=== PATIENT | female | born 1950 | race Caucasian/White ===

== ENCOUNTER 2017-08-30 16:38 | Inpatient (IN) | payer MEDICARE ==
[~2017-08-30] VITALS: Ht 160 cm; Wt 75.5 kg
[2017-08-30 16:38] VITALS: BP 109/57; PULSE 141; RESP 20; TEMP 100.5; O2SAT 96
[~2017-08-30 16:38] MED LIST: DARV PO; PROM6.257 PO; VENL25TA14 PO; ZITH250T PO; [UNRECOGNIZED DRUG - OTHER] PO
[2017-08-30] MEDS ORDERED: IOHEXOL 350 MG/ML 10 ML VIAL (for RAD DIAG) IVCONTRAST ONE (16:39)
[2017-08-30] MEDS ORDERED: SODIUM CHLOR 0.9% 1000 ML INJ 1,000 ML IV SCH (17:28)
[2017-08-30] MEDS ORDERED: ONDANSETRON HCL 4 MG/2 ML VIAL IVP ONE (17:30)
--- NOTE | 2017-08-30 17:31 | PD ---
HPI Chief Complaint: Fever Time Seen by Provider: 17:20 Travel History International Travel<30 days: No Contact w/Intl Traveler<30days: No Traveled to known affect area: No History of Present Illness HPI 67-year-old female presents for evaluation of fever, weakness, decreased appetite, nausea and vomiting, abdominal pain, cloudy urine. Symptoms started this morning. She believes that she may have a urinary tract infection. She denies any dysuria, diarrhea or constipation. The pain is right-sided periumbilical, mild, aching, worse with palpation. She had a syncopal episode in triage while walking in the bathroom- she reports that she has had nothing to eat today secondary to nausea and vomiting. Denies chest pain, shortness of breath, cough or congestion. PFSH Past Medical History Depression: Yes Kidney Stones: Yes Respiratory: Yes (COPD) Menopausal: Yes : 3 Para: 1 Miscarriage: 2 Past Surgical History Section: Yes (1995) Genitourinary Surgery: Yes (KIDNEY STONE REMOVED 1991) Gynecologic Surgery: Yes (FIBROID TUMOR BENIGN OF UTERUS- 1984) Social History Alcohol Use: Yes (SOCIALLY) Tobacco Use: No Substance Use: No Allergies-Medications (Allergen,Severity, Reaction): Coded Allergies: No Known Allergies (Verified Allergy, Mild, 01/08/08) Reported Meds & Prescriptions Reported Meds & Active Scripts Active Reported Flonase Sensimist (Fluticasone Furoate) 27.5 Mcg/Actuation [place].susp EACH NARE Breo Ellipta Inh (Fluticasone/Vilanterol) 100-25 Mcg/Act Inh 1 Puff INH DAILY Use daily at the same time. Pravastatin 10 Mg Tab 10 Mg PO DAILY Ibuprofen 200 Mg Tab 200 Mg PO Q4H PRN [Drixoral Otc] 1 Tab PO DAILY Review of Systems Except as stated in HPI: all other systems reviewed are Neg Physical Exam Narrative GENERAL: Well-developed well-nourished female in no acute distress SKIN: Warm and dry. HEAD: Atraumatic. Normocephalic. EYES: Pupils equal and round. No scleral icterus. No injection or drainage. ENT: No nasal bleeding or discharge. Mucous membranes pink and moist. NECK: Trachea midline. No JVD. CARDIOVASCULAR: Regular rate and rhythm. No murmur appreciated. RESPIRATORY: No accessory muscle use. Clear to auscultation. Breath sounds equal bilaterally. GASTROINTESTINAL: Abdomen soft, mild right periumbilical tenderness without guarding. No right upper quadrant tenderness. No tenderness to palpation over McBurney's point. No CVA tenderness. MUSCULOSKELETAL: No obvious deformities. No clubbing. No cyanosis. No edema. NEUROLOGICAL: Awake and alert. No obvious cranial nerve deficits. Motor grossly within normal limits. Normal speech. PSYCHIATRIC: Appropriate mood and affect; insight and judgment normal. Data Data Last Documented VS Vital Signs Date Time Temp Pulse Resp B/P (MAP) Pulse Ox O2 Delivery O2 Flow Rate FiO2 08/30/17 19:31 117 97 Nasal Cannula 2.00 08/30/17 19:31 24 89/58 (68) 08/30/17 16:38 100.5 Orders Orders Sepsis Workup Initiated (08/30/17 ) Electrocardiogram (08/30/17 17:02) Complete Blood Count With Diff (08/30/17 17:02) Comprehensive Metabolic Panel (08/30/17 17:02) Lactic Acid Sepsis Protocol (08/30/17 17:02) Urinalysis - C+S If Indicated (08/30/17 17:02) Blood Culture (08/30/17 17:02) Chest, Single Ap (08/30/17 17:02) Sodium Chlor 0.9% 1000 Ml Inj (Ns 1000 M (08/30/17 17:28) Ondansetron Inj (Zofran Inj) (08/30/17 17:30) Sodium Chlor 0.9% 1000 Ml Inj (Ns 1000 M (08/30/17 17:28) Ct Abd/Pel W Iv Contrast(Rout) (08/30/17 17:28) Blood Glucose (08/30/17 17:31) Urine Culture (08/30/17 17:20) Lipase (08/30/17 17:20) Ceftriaxone Inj (Rocephin Inj) (08/30/17 18:30) Potassium Chloride (Kcl) (08/30/17 18:30) Iohexol 350 Inj (Omnipaque 350 Inj) (08/30/17 16:39) Ketorolac Inj (Toradol Inj) (08/30/17 19:15) Admit Order (Ed Use Only) (08/30/17 19:57) Admit To Inpatient (08/30/17 ) Vital Signs (Adult) Q4H (08/30/17 19:56) Activity Oob With Assistance (08/30/17 19:56) Content Engineer / Telemetry .CONTINUOUS (08/30/17 19:56) Intake + Output RONAL.QSHIFT (08/30/17 19:56) Sodium Chloride 0.9% Flush (Ns Flush) (08/30/17 20:00) Sodium Chloride 0.9% Flush (Ns Flush) (08/30/17 21:00) Basic Metabolic Panel (Bmp) (08/31/17 06:00) Complete Blood Count With Diff (08/31/17 06:00) Naloxone Inj (Narcan Inj) (08/30/17 20:00) Inpatient Certification (08/30/17 ) Labs Laboratory Tests Test 08/30/17 17:20 08/30/17 19:55 White Blood Count 11.2 TH/MM3 Red Blood Count 4.61 MIL/MM3 Hemoglobin 13.1 GM/DL Hematocrit 38.3 % Mean Corpuscular Volume 83.1 FL Mean Corpuscular Hemoglobin 28.5 PG Mean Corpuscular Hemoglobin Concent 34.3 % Red Cell Distribution Width 14.1 % Platelet Count 322 TH/MM3 Mean Platelet Volume 7.4 FL Neutrophils (%) (Auto) 96.4 % Lymphocytes (%) (Auto) 2.6 % Monocytes (%) (Auto) 0.9 % Eosinophils (%) (Auto) 0.1 % Basophils (%) (Auto) 0.0 % Neutrophils # (Auto) 10.8 TH/MM3 Lymphocytes # (Auto) 0.3 TH/MM3 Monocytes # (Auto) 0.1 TH/MM3 Eosinophils # (Auto) 0.0 TH/MM3 Basophils # (Auto) 0.0 TH/MM3 CBC Comment DIFF FINAL Differential Comment Urine Color YELLOW Urine Turbidity HAZY Urine pH 6.0 Urine Specific [place] 1.022 Urine Protein 30 mg/dL Urine Glucose (UA) NEG mg/dL Urine Ketones NEG mg/dL Urine Occult Blood MOD Urine Nitrite NEG Urine Bilirubin NEG Urine Urobilinogen LESS THAN 2.0 MG/DL Urine Leukocyte Esterase LARGE Urine RBC 92 /hpf Urine WBC /hpf Urine Squamous Epithelial Cells 3 /hpf Urine Transitional Epithelial Cells 2 /hpf Urine Amorphous Sediment RARE Urine Bacteria RARE /hpf Urine Mucus MANY /lpf Microscopic Urinalysis Comment CATH-CULTURE IND Blood Urea Nitrogen 18 MG/DL Creatinine 1.00 MG/DL Random Glucose 121 MG/DL Total Protein 7.5 GM/DL Albumin 3.3 GM/DL Calcium Level 9.0 MG/DL Alkaline Phosphatase 139 U/L Aspartate Amino Transf (AST/SGOT) 21 U/L Alanine Aminotransferase (ALT/SGPT) 23 U/L Total Bilirubin 0.4 MG/DL Sodium Level 138 MEQ/L Potassium Level 3.0 MEQ/L Chloride Level 108 MEQ/L Carbon Dioxide Level 18.5 MEQ/L Anion Gap 12 MEQ/L Estimat Glomerular Filtration Rate 56 ML/MIN Lactic Acid Level 4.0 mmol/L 1.9 mmol/L Lipase 137 U/L [facility] Medical Decision Making Medical Screen Exam Complete: Yes Emergency Medical Condition: Yes Medical Record Reviewed: Yes Interpretation(s) CONCLUSION: 1. Patient's symptoms appear to be due to a series of 3 stones are in the right UPJ/proximal ureter ranging in size from 3-5 mm. Resulting right-sided hydronephrosis and perinephric stranding. 2. Nonobstructing 2-3 mm stone in the lower pole collecting system of the left kidney. 3. Cholelithiasis. 4. 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 Differential Diagnosis Colitis, appendicitis, cholecystitis, pyelonephritis, dehydration, electrolyte abnormality, sepsis Narrative Course The patient was placed on ECG monitoring pulse oximetry. Twelve-lead EKG will be obtained. Plan is for lab work, CT abdomen and pelvis. She will be given IV fluids, Zofran. Laboratory imaging studies have been reviewed. The patient has 3 stones in the right UPJ/proximal ureter ranging in size from 3-5 mm with resulting right- sided hydronephrosis. Her WBC count is slightly elevated at 11.2, lactic acid is 4, potassium is 3. The patient was given Toradol, Rocephin. At this point in time the plan is to admit the patient. Diagnosis Primary Impression: Severe sepsis Additional Impressions: Pyelonephritis Ureteral calculi Hydronephrosis Admitting Information Admitting Physician Requests: Admit Edgar Blake Aug 30, 2017 17:31
[2017-08-30] MEDS: SODIUM CHLOR 0.9% 1000 ML INJ 1,000 ML IV SCH ×3 (17:47→21:38)
[2017-08-30] MEDS ORDERED: FLUT1INH INH (17:50)
[2017-08-30] MEDS ORDERED: IBUP200T47 PO (17:50)
[2017-08-30] MEDS ORDERED: PRAV10TA PO (17:50)
[2017-08-30 17:56] LABS: AUTOMATED NEUTROPHIL # 10.8 TH/MM3 (1.8-7.7); EOSINOPHIL % 0.1 % (0.0-4.0); HEMATOCRIT 38.3 % (35.0-46.0); HEMO FLAGS DIFF FINAL; LYMPH % 2.6 % (9.0-44.0); LYMPHOCYTE # 0.3 TH/MM3 (1.0-4.8); MEAN CELL VOLUME 83.1 FL (80.0-100.0); MEAN CORPUSCULAR HEMOGLOBIN 28.5 PG (27.0-34.0); MEAN CORPUSCULAR HGB CONC 34.3 % (32.0-36.0); MONO % 0.9 % (0.0-8.0); NEUT % 96.4 % (16.0-70.0); PLATELET COUNT 322 TH/MM3 (150-450); RED BLOOD COUNT 4.61 MIL/MM3 (4.00-5.30); RED CELL DISTRIBUTION WIDTH 14.1 % (11.6-17.2); WHITE BLOOD COUNT 11.2 TH/MM3 (4.0-11.0)
[2017-08-30 18:02] LABS: BACTERIA, URINE RARE /hpf; BLOOD, URINE MOD (NEG); GLUCOSE,URINE NEG (NEG); KETONE, URINE NEG (NEG); MUCUS URINE MANY /lpf (OCC); NITRITE,URINE NEG (NEG); SQUAMOUS EPITHELIAL CELL URINE 3 /hpf (0-5); TRANSITIONAL EPI CELLS, URINE 2 /hpf; URINE COLOR YELLOW (YELLW/STRAW)
[2017-08-30 18:07] LABS: COMMENT (UR) CATH-CULTURE IND; CULTURE IF INDICATED CATH CULTURE IND
--- NOTE | 2017-08-30 18:19 | RADRPT ---
EXAM DATE/TIME: 08/30/2017 18:02 [facility] COMPARISON: No previous studies available for comparison. INDICATIONS : Fever. MEDICAL HISTORY : None. SURGICAL HISTORY : None. ENCOUNTER: Initial ACUITY: 1 day PAIN SCORE: 0/10 LOCATION: chest FINDINGS: A single view of the chest demonstrates the lungs to be symmetrically aerated without evidence of mas s, infiltrate or effusion. The cardiomediastinal contours are unremarkable. Osseous structures are intact. CONCLUSION: No acute cardiopulmonary process Nicola Gomes MD on August 30, 2017 at 18:17 Board Certified Radiologist. This report was verified electronically.
[2017-08-30 18:22] LABS: ALT (GPT) 23 U/L (10-53); ANION GAP 12 MEQ/L (5-15); AST (GOT) 21 U/L (15-37); BICARBONATE 18.5 MEQ/L (21.0-32.0); BLOOD UREA NITROGEN 18 MG/DL (7-18); CHLORIDE 108 MEQ/L (98-107); GLOMERULAR FILTRATION RATE 56 ML/MIN (>89); SODIUM (NA) 138 MEQ/L (136-145)
[2017-08-30 18:25] LABS: ALKALINE PHOSPHATASE 139 U/L (45-117); TOTAL BILIRUBIN ADULT 0.4 MG/DL (0.2-1.0)
[2017-08-30] MEDS ORDERED: POTASSIUM CHLORIDE 20 MEQ CONTROLLED RELEASE TAB PO ONE (18:30)
[2017-08-30] MEDS ORDERED: cefTRIAXone INJ 1,000 MG in SODIUM CHLORIDE 0.9% INJ 100 ML IV ONE (18:30)
[2017-08-30] MEDS ORDERED: KETOROLAC TROMETHAMINE 30 MG/ML (IVP) VIAL IV PUSH ONE (19:15)
[2017-08-30 19:31] VITALS: BP 89/58; PULSE 117; RESP 24; O2SAT 97
--- NOTE | 2017-08-30 19:32 | RADRPT ---
EXAM DATE/TIME: 08/30/2017 18:55 [facility] COMPARISON: No previous studies available for comparison. INDICATIONS : Fever,nausea ,right flank pain IV CONTRAST: 86 cc Omnipaque 350 (iohexol) IV ORAL CONTRAST: No oral contrast ingested. RADIATION DOSE: 11.21 CTDIvol (mGy) MEDICAL HISTORY : Chronic obstructive pulmonary disease. Renal calculi. Fibroid SURGICAL HISTORY : section. ENCOUNTER: Initial ACUITY: 1 day PAIN SCALE: 2/10 LOCATION: Right Abdomen TECHNIQUE: Volumetric scanning of the abdomen and pelvis was performed. Using automated exposure control and ad justment of the mA and/or kV according to patient size, radiation dose was kept as low as reasonably achievable to obtain optimal diagnostic quality images. DICOM format image data is available electro nically for review and comparison. FINDINGS: LOWER LUNGS: The visualized lower lungs are clear. LIVER: Homogeneous density without lesion. There is no dilation of the biliary tree. Multiple calcified gal lstones in the gallbladder lumen SPLEEN: Normal size without lesion. PANCREAS: Within normal limits. KIDNEYS: Right-sided hydronephrosis with perinephric stranding into a series of 3 stones the UVJ. These range in size from 3-5 mm. Nonobstructing 2-3 mm stone in the lower pole collecting system of the left kidn ey. ADRENAL GLANDS: Within normal limits. VASCULAR: There is no aortic aneurysm. BOWEL/MESENTERY: The stomach, small bowel, and colon demonstrate no acute abnormality. There is no free intraperitone al air or fluid. Diverticular disease of the sigmoid colon without diverticulitis ABDOMINAL WALL: Within normal limits. RETROPERITONEUM: There is no lymphadenopathy. BLADDER: No wall thickening or mass. REPRODUCTIVE: Within normal limits. INGUINAL: There is no lymphadenopathy or hernia. MUSCULOSKELETAL: Within normal limits for patient age. CONCLUSION: 1. Patient's symptoms appear to be due to a series of 3 stones are in the right UPJ/proximal ureter r anging in size from 3-5 mm. Resulting right-sided hydronephrosis and perinephric stranding. 2. Nonobstructing 2-3 mm stone in the lower pole collecting system of the left kidney. 3. Cholelithiasis. 4. 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 Nicola Gomes MD on August 30, 2017 at 19:25 Board Certified Radiologist. This report was verified electronically.
[2017-08-30 19:37] LABS: LACTIC ACID GHOST NOT REPORTABLE
[2017-08-30] MEDS ORDERED: NALOXONE HCL 0.4 MG/ML AMP IV PUSH PRN (20:00)
[2017-08-30] MEDS ORDERED: SODIUM CHLORIDE 0.9% FLUSH 10 ML FLUSH IV FLUSH PRN (20:00)
[2017-08-30] MEDS ORDERED: MORPHINE SULFATE 2 MG/ML INJ IV PUSH PRN (20:00)
[2017-08-30 20:42] VITALS: BP 92/60; PULSE 127; O2SAT 97
--- NOTE | 2017-08-30 22:38 | HHI.HP ---
HPI Service [facility] Primary Care Physician Jay Hogue M.D. Admission Diagnosis severe sepsis, pyelonephritis, ureteral stones Diagnoses: (1) Severe sepsis (2) Pyelonephritis (3) Hydronephrosis (4) Ureteral calculi Chief Complaint: Back pain, cloudy urine, fever, nausea and vomiting Travel History International Travel<30 Days: No Contact w/Intl Traveler <30 Da: No Traveled to Known Affected Are: No History of Present Illness Written by Jannet Day, acting as scribe for Dr. Starks on 08/30/17 at 22:38. Patient reports fever 103.3, cloudy urine, back pain, nausea and vomiting, and chills. Symptoms severe with onset 08/30 in the morning. Denies dysuria. The patient was concerned she might have a UTI and presented to the hospital. She is also complaining of a mild headache. She was not on antibiotics recently Urologist is Dr. Eason Over the past two weeks prior to this morning: denies any nausea, vomiting, diarrhea, chest pain, dizziness, shortness of breath, syncope, cough, black stools or red stools. Review of Systems Except as stated in HPI: all other systems reviewed are Neg Past Family Social History Past Medical History Nephrolithiasis Reports white coat syndrome COPD - not on home oxygen Denies anemia, CAD, CHF, atrial fibrillation, liver problems, kidney problems, DVT, CVA, seizures, thyroid problems, or cancers . Past Surgical History Lithotripsy Uterine myomectomy (fibroid tumor removal) . Reported Medications Reported Meds & Active Scripts Active Reported Flonase Sensimist (Fluticasone Furoate) 27.5 Mcg/Actuation [place].susp EACH NARE Breo Ellipta Inh (Fluticasone/Vilanterol) 100-25 Mcg/Act Inh 1 Puff INH DAILY Use daily at the same time. Pravastatin 10 Mg Tab 10 Mg PO DAILY Ibuprofen 200 Mg Tab 200 Mg PO Q4H PRN [Drixoral Otc] 1 Tab PO DAILY . Allergies: Coded Allergies: No Known Allergies (Verified Allergy, Mild, 01/08/08) Active Ordered Medications . Current Medications Sodium Chloride 1,000 ml @ 1,000 mls/hr Q1H IV Last administered on 17:46; Start 08/30/17 at 17:28; Stop 08/30/17 at 18:27; Status DC Ondansetron HCl (Zofran Inj) 4 mg ONCE ONCE IVP Last administered on 17:47; Start 08/30/17 at 17:30; Stop 08/30/17 at 17:31; Status DC Sodium Chloride 1,000 ml @ 1,000 mls/hr Q1H IV Last administered on 20:20; Start 08/30/17 at 17:28; Stop 08/30/17 at 18:27; Status DC Ceftriaxone Sodium 1000 mg/ Sodium Chloride 100 ml @ 200 mls/hr ONCE ONCE IV Last administered on 08/30/17 19:09; Start 08/30/17 at 18:30; Stop 08/30/17 at 18:59; Status DC Potassium Chloride (KCl) 40 meq ONCE ONCE PO Last administered on 08/30/17 19:10; Start 08/30/17 at 18:30; Stop 08/30/17 at 18:31; Status DC Iohexol (Omnipaque 350 Inj) 86 ml STK-MED ONCE IVCONTRAST Last administered on 08/30/17 16:39; Start 08/30/17 at 16:39; Stop 08/30/17 at 19:08; Status DC Ketorolac Tromethamine (Toradol Inj) 30 mg ONCE ONCE IV PUSH Last administered on 08/30/17 20:20; Start 08/30/17 at 19:15; Stop 08/30/17 at 19 :16; Status DC Sodium Chloride (NS Flush) 2 ml UNSCH PRN IV FLUSH FLUSH AFTER USING IV ACCESS ; Start 08/30/17 at 20:00 Sodium Chloride (NS Flush) 2 ml BID IV FLUSH ; Start 08/30/17 at 21:00 Naloxone HCl (Narcan Inj) 0.4 mg UNSCH PRN IV PUSH SEE LABEL COMMENTS; Start 08/30/17 at 20:00 Sodium Chloride 1,000 ml @ 125 mls/hr Q8H IV Last administered on 11/29/17at 21:38; Start 08/30/17 at 21:00 Ceftriaxone Sodium 1000 mg/ Sodium Chloride 100 ml @ 200 mls/hr Q12H IV ; Start 08/31/17 at 08:00 Morphine Sulfate (Morphine Inj) 2 mg Q3H PRN IV PUSH pain >5; Start 08/30/17 at 20:00 Family History Mother with CAD s/p CABG x 4 Diabetes Mellitus throughout family . Social History Tobacco: never smoked, exposed to second hand smoke by ex 's family x > 20 years Alcohol: rare social use Lives with her son. She drives. Physical Exam Vital Signs Vital Signs Date Time Temp Pulse Resp B/P (MAP) Pulse Ox O2 Delivery O2 Flow Rate FiO2 08/30/17 21:37 08/30/17 20:42 127 92/60 (71) 97 Nasal Cannula 2.00 08/30/17 19:31 117 97 Nasal Cannula 2.00 08/30/17 19:31 117 24 89/58 (68) 97 Nasal Cannula 2.00 08/30/17 17:28 15 98 Room Air 08/30/17 16:38 100.5 141 20 109/57 (74) 96 Room Air Physical Exam GENERAL: This is a pleasant female patient, in no apparent distress. SKIN: No rashes. Cool and dry. HEAD: Atraumatic. Normocephalic. EYES: No scleral icterus. No injection or drainage. ENT: Nose without bleeding, purulent drainage. NECK: Trachea midline. No JVD. CARDIOVASCULAR: Regular rate and rhythm without murmurs, gallops, or rubs. RESPIRATORY: Clear to auscultation. Breath sounds equal bilaterally. No wheezes , rales, or rhonchi. GASTROINTESTINAL: Abdomen soft, non-tender, nondistended. No guarding. MUSCULOSKELETAL: Extremities without clubbing, cyanosis, or edema. No calf tenderness. NEUROLOGICAL: Awake and alert. Motor and sensory grossly within normal limits. Normal speech. . Laboratory Laboratory Tests Test 08/30/17 17:20 08/30/17 19:55 White Blood Count 11.2 Red Blood Count 4.61 Hemoglobin 13.1 Hematocrit 38.3 Mean Corpuscular Volume 83.1 Mean Corpuscular Hemoglobin 28.5 Mean Corpuscular Hemoglobin Concent 34.3 Red Cell Distribution Width 14.1 Platelet Count 322 Mean Platelet Volume 7.4 Neutrophils (%) (Auto) 96.4 Lymphocytes (%) (Auto) 2.6 Monocytes (%) (Auto) 0.9 Eosinophils (%) (Auto) 0.1 Basophils (%) (Auto) 0.0 Neutrophils # (Auto) 10.8 Lymphocytes # (Auto) 0.3 Monocytes # (Auto) 0.1 Eosinophils # (Auto) 0.0 Basophils # (Auto) 0.0 CBC Comment DIFF FINAL Differential Comment Urine Color YELLOW Urine Turbidity HAZY Urine pH 6.0 Urine Specific [place] 1.022 Urine Protein 30 Urine Glucose (UA) NEG Urine Ketones NEG Urine Occult Blood MOD Urine Nitrite NEG Urine Bilirubin NEG Urine Urobilinogen LESS THAN 2.0 Urine Leukocyte Esterase LARGE Urine RBC 92 Urine WBC Urine Squamous Epithelial Cells 3 Urine Transitional Epithelial Cells 2 Urine Amorphous Sediment RARE Urine Bacteria RARE Urine Mucus MANY Microscopic Urinalysis Comment CATH-CULTURE IND Blood Urea Nitrogen 18 Creatinine 1.00 Random Glucose 121 Total Protein 7.5 Albumin 3.3 Calcium Level 9.0 Alkaline Phosphatase 139 Aspartate Amino Transf (AST/SGOT) 21 Alanine Aminotransferase (ALT/SGPT) 23 Total Bilirubin 0.4 Sodium Level 138 Potassium Level 3.0 Chloride Level 108 Carbon Dioxide Level 18.5 Anion Gap 12 Estimat Glomerular Filtration Rate 56 Lactic Acid Level 4.0 1.9 Lipase 137 Date/Time Source Procedure Growth Status 08/30/17 17:20 Blood Peripheral Aerobic Blood Culture Pending Received 08/30/17 17:20 Blood Peripheral Anaerobic Blood Culture Pending Received 08/30/17 17:20 Urine Catheterized Urine Urine Culture Pending Received Result Diagram: 08/30/17 1720 08/30/17 1720 Imaging Last Impressions Abdomen/Pelvis CT 08/30/17 1728 Signed Impressions: Service Date/Time: Wednesday, August 30, 2017 18:55 - CONCLUSION: 1. Patient's symptoms appear to be due to a series of 3 stones are in the right UPJ/proximal ureter ranging in size from 3-5 mm. Resulting right-sided hydronephrosis and perinephric stranding. 2. Nonobstructing 2-3 mm stone in the lower pole collecting system of the left kidney. 3. Cholelithiasis. 4. 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 Nicola Gomes MD Chest X-Ray 08/30/17 1702 Signed Impressions: Service Date/Time: Wednesday, August 30, 2017 18:02 - CONCLUSION: No acute cardiopulmonary process Nicola Gomes MD . Caprini VTE Risk Assessment Caprini VTE Risk Assessment: Mod/High Risk (score >= 2) Caprini Risk Assessment Model Point Value = 1 Point Value = 2 Point Value = 3 Point Value = 5 Age 41-60 Minor surgery BMI > 25 kg/m2 Swollen legs Varicose veins or History of unexplained or recurrent spontaneous Oral contraceptives or hormone replacement Sepsis (< 1 month) Serious lung disease, including pneumonia (< 1 month) Abnormal pulmonary function Acute myocardial infarction Congestive heart failure (< 1 month) History of inflammatory bowel disease Medical patient at bed rest Age 61-74 Arthroscopic surgery Major open surgery (> 45 min) Laparoscopic surgery (> 45 min) Malignancy Confined to bed (> 72 hours) Immobilizing plaster cast Central venous access Age >= 75 History of VTE Family history of VTE Factor V Leiden Prothrombin [id number] Lupus anticoagulant Anticardiolipin antibodies Elevated serum homocysteine Heparin-induced thrombocytopenia Other congenital or acquired thrombophilia Stroke (< 1 month) Elective arthroplasty Hip, pelvis, or leg fracture Acute spinal cord injury (< 1 month) Prophylaxis Regimen Total Risk Factor Score Risk Level Prophylaxis Regimen 0-1 Low Early ambulation 2 Moderate Order ONE of the following: *Sequential Compression Device (SCD) *Heparin 5000 units SQ BID 3-4 Higher Order ONE of the following medications: *Heparin 5000 units SQ TID *Enoxaparin/Lovenox 40 mg SQ daily (WT < 150 kg, CrCl > 30 mL/min) *Enoxaparin/Lovenox 30 mg SQ daily (WT < 150 kg, CrCl > 10-29 mL/min) *Enoxaparin/Lovenox 30 mg SQ BID (WT < 150 kg, CrCl > 30 mL/min) AND/OR *Sequential Compression Device (SCD) 5 or more Highest Order ONE of the following medications: *Heparin 5000 units SQ TID (Preferred with Epidurals) *Enoxaparin/Lovenox 40 mg SQ daily (WT < 150 kg, CrCl > 30 mL/min) *Enoxaparin/Lovenox 30 mg SQ daily (WT < 150 kg, CrCl > 10-29 mL/min) *Enoxaparin/Lovenox 30 mg SQ BID (WT < 150 kg, CrCl > 30 mL/min) AND *Sequential Compression Device (SCD) Assessment and Plan Problem List: (1) Severe sepsis ICD Code: A41.9 - Sepsis, unspecified organism; R65.20 - Severe sepsis without septic shock Status: Acute (2) Pyelonephritis ICD Code: N12 - Tubulo-interstitial nephritis, not specified as acute or chronic; R65.20 - Severe sepsis without septic shock Status: Acute (3) Hydronephrosis ICD Code: N13.30 - Unspecified hydronephrosis Status: Acute (4) Ureteral calculi ICD Code: N20.1 - Calculus of ureter; R65.20 - Severe sepsis without septic shock Status: Acute (5) COPD (chronic obstructive pulmonary disease) ICD Code: J44.9 - Chronic obstructive pulmonary disease, unspecified Status: Chronic Assessment and Plan 67 y/o female with a history of nephrolithiasis and COPD who presented to ED for evaluation of back pain, fever, chills, cloudy urine, nausea, and vomiting. Severe sepsis Right ureteral kidney stone with hydronephrosis Pyelonephritis - WBC 11.2 with left shift, tachycardia, fever 100.5 on admission, and UA c/w UTI - Lactic Acid 4.0 on admission and 1.9 on repeat - Ceftriaxone 1 gram IV q12h - NS at 125 cc/hr - Morphine 2 mg IV q3h PRN pain > 5 - urology consulted - assistance is appreciated - NPO after midnight with p.o. meds - verbally ordered. COPD - chest xray demonstrates no acute cardiopulmonary process - continue home medication - Breo Ellipta - verbally ordered - supplemental oxygen to maintain oxygen saturation > 92% - verbally ordered Patient requesting home medication Flonase for allergic rhinitis and Tylenol for mild CORDOBA - verbally ordered. DVT prophylaxis - SCDs/TEDs - verbally ordered This note was transcribed by kandy [Jannet Day]. I, Dr. Yasmeen Starks personally performed the history, physical exam, and medical decision making; and confirmed the accuracy of the information in the transcribed note. Authenticated by Dr. Yasmeen Starks on 08/30/17 at 22:38. Discussed Condition With ER physician, patient, and RN Physician Certification 2 Midnight Certification Type: Admission for Inpatient Services Order for Inpatient Services The services are ordered in accordance with Medicare regulations or non- Medicare payer requirements, as applicable. In the case of services not specified as inpatient-only, they are appropriately provided as inpatient services in accordance with the 2-midnight benchmark. Estimated LOS (days): 3 days is the estimated time the patient will need to remain in the hospital, assuming treatment plan goals are met and no additional complications. Post-Hospital Plan: Home Jannet Day Aug 30, 2017 22:38 Yasmeen Starks MD Aug 31, 2017 03:03
[2017-08-30] MEDS: SODIUM CHLORIDE 0.9% FLUSH 10 ML FLUSH IV FLUSH SCH (22:43)
[2017-08-30] MEDS ORDERED: FLUT9.9S EACH NARE (22:51)
[2017-08-30 23:02] VITALS: BP 87/54; PULSE 123; RESP 20; TEMP 100; O2SAT 98
[2017-08-30] MEDS ORDERED: ACETAMINOPHEN 325 MG TAB PO ONE (23:45)
[2017-08-31] VITALS (8 sets, daily range): BP systolic 78–105; BP diastolic 47–67; PULSE 81–111; RESP 17–22; TEMP 96.6–100; O2SAT 93–99
[2017-08-31] MEDS ORDERED: HYDROCORTISONE SOD SUCCINATE 100 MG VIAL IV PUSH ONE (03:15)
[2017-08-31] MEDS ORDERED: SODIUM CHLOR 0.9% 1000 ML INJ 1,000 ML IV ONE ×2 (03:15→05:00)
--- NOTE | 2017-08-31 06:17 | RADRPT ---
EXAM DATE/TIME: 08/31/2017 05:54 [facility] COMPARISON: CHEST SINGLE AP, August 30, 2017, 18:02. INDICATIONS : Shortness of breath. MEDICAL HISTORY : None. SURGICAL HISTORY : None. ENCOUNTER: Subsequent ACUITY: 1 day PAIN SCORE: 0/10 LOCATION: Bilateral chest FINDINGS: A single view of the chest demonstrates the lungs to be symmetrically aerated without evidence of mas s, infiltrate or effusion. The cardiomediastinal contours are unremarkable. Osseous structures are intact. CONCLUSION: No acute disease. Negrito Bush MD on August 31, 2017 at 6:16 Board Certified Radiologist. This report was verified electronically.
[2017-08-31 07:05] LABS: AUTOMATED NEUTROPHIL # 22.6 TH/MM3 (1.8-7.7); BASOPHIL % 0.1 % (0.0-2.0); HEMATOCRIT 32.6 % (35.0-46.0); LYMPH % 1.5 % (9.0-44.0); LYMPHOCYTE # 0.4 TH/MM3 (1.0-4.8); MEAN CELL VOLUME 84.4 FL (80.0-100.0); MEAN CORPUSCULAR HEMOGLOBIN 28.6 PG (27.0-34.0); MEAN CORPUSCULAR HGB CONC 33.9 % (32.0-36.0); MONO % 3.4 % (0.0-8.0); PLATELET COUNT 262 TH/MM3 (150-450); RED BLOOD COUNT 3.87 MIL/MM3 (4.00-5.30); RED CELL DISTRIBUTION WIDTH 14.4 % (11.6-17.2); WHITE BLOOD COUNT 23.8 TH/MM3 (4.0-11.0)
[2017-08-31] MEDS: HYDROCORTISONE SOD SUCCINATE 100 MG VIAL IV PUSH SCH ×4 (07:07→23:39)
[2017-08-31 07:36] LABS: BICARBONATE 16.8 MEQ/L (21.0-32.0); POTASSIUM 3.8 MEQ/L (3.5-5.1)
[2017-08-31 07:40] LABS: HEMO FLAGS AUTO DIFF
[2017-08-31] MEDS: SODIUM CHLOR 0.9% 1000 ML INJ 1,000 ML IV SCH ×2 (07:41→17:26)
[2017-08-31] MEDS: FLUTICASONE 100 MCG/VILANTEROL 25 MCG INHALER INH SCH (08:48)
[2017-08-31] MEDS: cefTRIAXone INJ 1,000 MG in SODIUM CHLORIDE 0.9% INJ 100 ML IV SCH ×2 (08:48→20:50)
[2017-08-31] MEDS: FLUTICASONE PROPIONATE 50 MCG/ACT 16 GM NASAL SPRAY NASAL SCH ×2 (08:49→23:38)
[2017-08-31] MEDS: SODIUM CHLORIDE 0.9% FLUSH 10 ML FLUSH IV FLUSH SCH ×2 (08:49→20:41)
[2017-08-31] MEDS ORDERED: PRAVASTATIN SOD 10 MG TAB PO SCH (09:00)
[2017-08-31] MEDS: PIPERACIL-TAZO 4.5 GM PREMIX 100 ML IV SCH ×3 (12:13→23:39)
--- NOTE | 2017-08-31 12:22 | PD.CONS ---
[facility] Service Urology Consult Requested By Reason for Consult Septic patient with obstructing right ureteral calculi Primary Care Physician Jay Hogue M.D. Diagnosis: (1) Severe sepsis ICD Code: A41.9 - Sepsis, unspecified organism; R65.20 - Severe sepsis without septic shock (2) Pyelonephritis ICD Code: N12 - Tubulo-interstitial nephritis, not specified as acute or chronic; R65.20 - Severe sepsis without septic shock (3) Hydronephrosis ICD Code: N13.30 - Unspecified hydronephrosis (4) Ureteral calculi ICD Code: N20.1 - Calculus of ureter; R65.20 - Severe sepsis without septic shock (5) COPD (chronic obstructive pulmonary disease) ICD Code: J44.9 - Chronic obstructive pulmonary disease, unspecified History of Present Illness 67-year-old female with history nephrolithiasis who presented to the emergency room with complaints of right flank pain, cloudy urine, nausea, vomiting, chills and fever of greater than 103F. Preliminary evaluation included a CT scan that demonstrated right hydronephrosis secondary to 3 obstructing right proximal ureteral stones measuring up to 5 mm in size. Patient also was noted to have a 2-3 mm left lower pole nonobstructing renal calculus. Patient was prescribed analgesic medication, started on antibiotic therapy and a urology consult placed for further management. At the time of consultation, the patient reports that her symptoms began acutely and prior to this she was doing well. Dr. Estevez is this patient's established urologist. Review of Systems Constitutional: COMPLAINS OF: Fever, Chills Cardiovascular: DENIES: Chest pain Gastrointestinal: COMPLAINS OF: Abdominal pain Genitourinary: DENIES: Hematuria, Dysuria Musculoskeletal: COMPLAINS OF: Back pain (right flank) Except as stated in HPI: all other systems reviewed are Neg Past Family Social History Past Medical History Nephrolithiasis COPD Past Surgical History Lithotripsy section Surgical removal of uterine fibroid tumor Reported Medications Refer to EMR Allergies: Coded Allergies: No Known Allergies (Verified Allergy, Mild, 01/08/08) Active Ordered Medications Refer to EMR Family History Coronary artery disease Diabetes mellitus Social History Denies tobacco use Occasional alcohol use Physical Exam Vital Signs Date Time Temp Pulse Resp B/P (MAP) Pulse Ox O2 Delivery O2 Flow Rate FiO2 08/31/17 08:00 98.2 93 19 88/52 (64) 95 98/54 (69) 08/31/17 06:45 94 89/59 (69) Manual Cuff/Auscultation 08/31/17 04:45 98.4 78/52 (61) Automatic Cuff 08/31/17 00:00 100.0 111 20 79/47 (58) 93 08/30/17 23:02 100.0 123 20 87/54 (65) 98 08/30/17 21:37 08/30/17 20:42 127 92/60 (71) 97 Nasal Cannula 2.00 08/30/17 19:31 117 97 Nasal Cannula 2.00 08/30/17 19:31 117 24 89/58 (68) 97 Nasal Cannula 2.00 08/30/17 17:28 15 98 Room Air 08/30/17 16:38 100.5 141 20 109/57 (74) 96 Room Air Physical Exam GENERAL: This is a well-nourished, well-developed patient, in no apparent distress. SKIN: No rashes, ecchymoses or lesions. Cool and dry. HEAD: Atraumatic. Normocephalic. No temporal or scalp tenderness. EYES: Pupils equal round and reactive. Extraocular motions intact. No scleral icterus. No injection or drainage. ENT: Nose without bleeding, purulent drainage or septal hematoma. Throat without erythema, tonsillar hypertrophy or exudate. Uvula midline. Airway patent. NECK: Trachea midline. No JVD or lymphadenopathy. Supple, nontender, no meningeal signs. GASTROINTESTINAL: Abdomen soft, non-tender, nondistended. No hepato-splenomegaly , or palpable masses. No guarding. GENITOURINARY: No CVA tenderness MUSCULOSKELETAL: Extremities without clubbing, cyanosis, or edema. No joint tenderness, effusion, or edema noted. No calf tenderness. Negative Homans sign bilaterally. NEUROLOGICAL: Awake and alert. Cranial nerves II through XII intact. Motor and sensory grossly within normal limits. Five out of 5 muscle strength in all muscle groups. Normal speech. Lab results reviewed: Yes Laboratory Tests Test 08/30/17 17:20 08/30/17 19:55 08/31/17 05:20 White Blood Count 11.2 23.8 Red Blood Count 4.61 3.87 Hemoglobin 13.1 11.1 Hematocrit 38.3 32.6 Mean Corpuscular Volume 83.1 84.4 Mean Corpuscular Hemoglobin 28.5 28.6 Mean Corpuscular Hemoglobin Concent 34.3 33.9 Red Cell Distribution Width 14.1 14.4 Platelet Count 322 262 Mean Platelet Volume 7.4 7.9 Neutrophils (%) (Auto) 96.4 95.0 Lymphocytes (%) (Auto) 2.6 1.5 Monocytes (%) (Auto) 0.9 3.4 Eosinophils (%) (Auto) 0.1 0.0 Basophils (%) (Auto) 0.0 0.1 Neutrophils # (Auto) 10.8 22.6 Lymphocytes # (Auto) 0.3 0.4 Monocytes # (Auto) 0.1 0.8 Eosinophils # (Auto) 0.0 0.0 Basophils # (Auto) 0.0 0.0 CBC Comment DIFF FINAL AUTO DIFF Differential Comment Urine Color YELLOW Urine Turbidity HAZY Urine pH 6.0 Urine Specific [place] 1.022 Urine Protein 30 Urine Glucose (UA) NEG Urine Ketones NEG Urine Occult Blood MOD Urine Nitrite NEG Urine Bilirubin NEG Urine Urobilinogen LESS THAN 2.0 Urine Leukocyte Esterase LARGE Urine RBC 92 Urine WBC Urine Squamous Epithelial Cells 3 Urine Transitional Epithelial Cells 2 Urine Amorphous Sediment RARE Urine Bacteria RARE Urine Mucus MANY Microscopic Urinalysis Comment CATH-CULTURE IND Blood Urea Nitrogen 18 19 Creatinine 1.00 0.95 Random Glucose 121 100 Total Protein 7.5 Albumin 3.3 Calcium Level 9.0 7.8 Alkaline Phosphatase 139 Aspartate Amino Transf (AST/SGOT) 21 Alanine Aminotransferase (ALT/SGPT) 23 Total Bilirubin 0.4 Sodium Level 138 143 Potassium Level 3.0 3.8 Chloride Level 108 113 Carbon Dioxide Level 18.5 16.8 Anion Gap 12 13 Estimat Glomerular Filtration Rate 56 59 Lactic Acid Level 4.0 1.9 Lipase 137 Date/Time Source Procedure Growth Status 08/30/17 17:20 Blood Peripheral Aerobic Blood Culture - Preliminary Enterobacter Species Resulted 08/30/17 17:20 Anaerobic Blood Culture - Preliminary Gram Negative Toni Resulted 08/30/17 17:20 Urine Catheterized Urine Urine Culture Pending Received Result Diagram: 08/31/1751908/31/17519 Personally reviewed images: Yes Imaging Last Impressions Chest X-Ray 08/31/17 0000 Signed Impressions: Service Date/Time: August 05:54 - CONCLUSION: No acute disease. Negrito Bush MD Abdomen/Pelvis CT 08/30/17 1728 Signed Impressions: Service Date/Time: Wednesday, August 30, 2017 18:55 - CONCLUSION: 1. Patient's symptoms appear to be due to a series of 3 stones are in the right UPJ/proximal ureter ranging in size from 3-5 mm. Resulting right-sided hydronephrosis and perinephric stranding. 2. Nonobstructing 2-3 mm stone in the lower pole collecting system of the left kidney. 3. Cholelithiasis. 4. 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 Nicola Gomes MD Assessment and Plan Assessment and Plan Urologic impression: Sepsis related to obstructing right proximal ureteral calculi Plan: #1 keep patient nothing by mouth #2 patient scheduled for cystoscopy, right retrograde pyelogram and right ureteral stent placement for later this afternoon #3 patient will eventually require outpatient shockwave lithotripsy Tone Braga MD Aug 31, 2017 12:22
--- NOTE | 2017-08-31 14:49 | HHI.PR ---
Subjective Remarks Fever And tachycardia have improved. Sepsis criteria and no longer present when seen today. Pending cystoscopy with stent placement is planned for this afternoon. Objective Vital Signs Date Time Temp Pulse Resp B/P (MAP) Pulse Ox O2 Delivery O2 Flow Rate FiO2 08/31/17 12:00 96.6 81 17 104/67 (79) 99 08/31/17 08:00 98.2 93 19 88/52 (64) 95 98/54 (69) 08/31/17 06:45 94 89/59 (69) Manual Cuff/Auscultation 08/31/17 04:45 98.4 78/52 (61) Automatic Cuff 08/31/17 00:00 100.0 111 20 79/47 (58) 93 08/30/17 23:02 100.0 123 20 87/54 (65) 98 08/30/17 21:37 08/30/17 20:42 127 92/60 (71) 97 Nasal Cannula 2.00 08/30/17 19:31 117 97 Nasal Cannula 2.00 08/30/17 19:31 117 24 89/58 (68) 97 Nasal Cannula 2.00 08/30/17 17:28 15 98 Room Air 08/30/17 16:38 100.5 141 20 109/57 (74) 96 Room Air I/O 08/30/17 08/30/17 08/30/17 08/31/17 08/31/17 08/31/17 06:59 14:59 22:59 06:59 14:59 22:59 Intake Total 2100 ml 2000 ml 1000 ml Output Total 550 ml Balance 2100 ml 1450 ml 1000 ml Intake IV Total 2100 ml 2000 ml 1000 ml Output Urine Total 550 ml # Voids 2 Result Diagram: 08/31/1751908/31/17519 Other Results GENERAL: NAD, A&Ox3 HEAD: Normocephalic. NECK: Supple, trachea midline. No lymphadenopathy. EYES: No scleral icterus. No injection or drainage. CARDIOVASCULAR: Regular rate and rhythm without murmurs, gallops, or rubs. RESPIRATORY: Breath sounds equal bilaterally. No accessory muscle use. GASTROINTESTINAL: Abdomen soft, non-tender, nondistended. MUSCULOSKELETAL: No cyanosis, or edema. SKIN: Warm and dry. NEURO: No focal neurological deficitis. A/P Problem List: (1) COPD (chronic obstructive pulmonary disease) ICD Code: J44.9 - Chronic obstructive pulmonary disease, unspecified Status: Chronic (2) Severe sepsis ICD Code: A41.9 - Sepsis, unspecified organism; R65.20 - Severe sepsis without septic shock Status: Acute (3) Ureteral calculi ICD Code: N20.1 - Calculus of ureter; R65.20 - Severe sepsis without septic shock Status: Acute (4) Pyelonephritis ICD Code: N12 - Tubulo-interstitial nephritis, not specified as acute or chronic; R65.20 - Severe sepsis without septic shock Status: Acute (5) Hydronephrosis ICD Code: N13.30 - Unspecified hydronephrosis Status: Acute Assessment and Plan Assessment and plan 67-year-old female admitted secondary to acute pyelonephritis with ureterolithiasis Severe sepsis Right ureterolithiasis with hydronephrosis Pyelonephritis Continue pain treatments as needed Continue Rocephin Urology following Stent placement planned Outpatient lithotripsy planned COPD Allergic Rhinitis Continue Breo Continued Ellepta Continue oxygen as needed No acute exacerbation when seen Continue Flonase DVT prophylaxis SCDs Thomas Hurtado MD Aug 31, 2017 14:49
--- NOTE | 2017-08-31 16:26 | EKG ---
Date Performed: 08/30/2017 Time Performed: 17:34:06 PTAGE: 67 years EKG: SINUS TACHYCARDIA When compared to previous tracing, heart rate has increased. ABNORMAL RHY THM ECG PREVIOUS TRACING : 08/05/1997 04.19 DOCTOR: Quan Young Interpretating Date/Time 08/31/2017 16:25:31
[2017-08-31] MEDS: ACETAMINOPHEN 325 MG TAB PO PRN (21:36)
[2017-08-31] MEDS: RESP: ALBUTEROL 2.5 MG/IPRATROPIUM 0.5 MG NEB (PRN) NEB (22:35)
[2017-09-01] VITALS (8 sets, daily range): BP systolic 85–109; BP diastolic 50–68; PULSE 68–94; RESP 18–22; TEMP 96.9–97.8; O2SAT 93–98
[2017-09-01] MEDS: SODIUM CHLOR 0.9% 1000 ML INJ 1,000 ML IV SCH ×4 (05:00→17:35)
[2017-09-01 05:37] LABS: AUTOMATED NEUTROPHIL # 20.2 TH/MM3 (1.8-7.7); BASOPHIL % 0.1 % (0.0-2.0); HEMATOCRIT 29.5 % (35.0-46.0); HEMO FLAGS DIFF FINAL; LYMPH % 3.2 % (9.0-44.0); LYMPHOCYTE # 0.7 TH/MM3 (1.0-4.8); MEAN CELL VOLUME 83.1 FL (80.0-100.0); MEAN CORPUSCULAR HEMOGLOBIN 27.7 PG (27.0-34.0); MEAN CORPUSCULAR HGB CONC 33.4 % (32.0-36.0); MONO % 3.4 % (0.0-8.0); NEUT % 93.3 % (16.0-70.0); PLATELET COUNT 222 TH/MM3 (150-450); RED BLOOD COUNT 3.56 MIL/MM3 (4.00-5.30); RED CELL DISTRIBUTION WIDTH 14.7 % (11.6-17.2); WHITE BLOOD COUNT 21.7 TH/MM3 (4.0-11.0)
[2017-09-01 06:00] LABS: BICARBONATE 21.3 MEQ/L (21.0-32.0); CALCIUM-PROTEIN CORRECTED 8.1 MG/DL (8.5-10.1); POTASSIUM 3.3 MEQ/L (3.5-5.1); TOTAL BILIRUBIN ADULT 0.2 MG/DL (0.2-1.0)
[2017-09-01] MEDS: PIPERACIL-TAZO 4.5 GM PREMIX 100 ML IV SCH (06:23)
[2017-09-01] MEDS: HYDROCORTISONE SOD SUCCINATE 100 MG VIAL IV PUSH SCH ×3 (06:24→17:32)
[2017-09-01] MEDS: cefTRIAXone INJ 1,000 MG in SODIUM CHLORIDE 0.9% INJ 100 ML IV SCH (08:08)
[2017-09-01] MEDS: FLUTICASONE 100 MCG/VILANTEROL 25 MCG INHALER INH SCH (08:09)
[2017-09-01] MEDS ORDERED: POTASSIUM CHLORIDE 20 MEQ PWD PACKET PO ONE (08:15)
[2017-09-01] MEDS: SODIUM CHLORIDE 0.9% FLUSH 10 ML FLUSH IV FLUSH SCH ×2 (08:23→20:15)
[2017-09-01] MEDS: FLUTICASONE PROPIONATE 50 MCG/ACT 16 GM NASAL SPRAY NASAL SCH ×2 (08:24→21:59)
[2017-09-01] MEDS ORDERED: POTASSIUM CHLOR 20 MEQ PREMIX 100 ML IV ONE (08:45)
[2017-09-01] MEDS ORDERED: POTASSIUM CHLORIDE 20 MEQ CONTROLLED RELEASE TAB PO ONE (08:45)
--- NOTE | 2017-09-01 09:59 | PD.OP ---
Operative Report Date of Surgery: Sep 01, 2017 Preoperative Diagnosis: (1) Ureteral calculus, right Postoperative Diagnosis: (1) Ureteral calculus, right Procedure: Cystoscopy, right retrograde pyelogram and right ureteral stent placement Surgeon: Tone Braga Superintendent Quarry(s): None Operation and Findings: Indication for procedure: The case of a pleasant 67-year-old female with 3 obstructing right proximal ureteral calculi who presents now for cystoscopy, right retrograde pyelogram and right ureteral stent placement. Operative procedure in detail: Patient was brought to the operating suite and placed supine on the cystoscopy table. She was then placed general anesthesia. She was then repositioned in the dorsolithotomy position and prepped and draped in normal sterile fashion. After the appropriate timeout was undertaken high proceeded with cystoscopic evaluation utilizing the rigid cystoscope with the 20 Chinese sheath and 30 lens. Both right and left ureteral orifices were in correct anatomic position, it was clear reflux of urine noted on the left and there was no reflux of urine noted on the right. I then proceeded with passing a sensor 0.035 wire partially up the right ureter and subsequently passed a 6 Chinese open-ended ureteral catheter over this wire. The wire was withdrawn and a right retrograde pyelogram study was performed which demonstrated the obstructing right proximal ureteral calculi as evident on the prior CT scan. I was then able to fully advance the wire beyond the stones and into the right renal pelvis. The open-ended catheter was exchanged for a [place] 6 Chinese 24 cm stent which was placed on the both cystoscopic and fluoroscopic guidance without difficulty. Once the stent was in proper position , the trailing string was removed. There was some bloody urine output coming from the stent after it was placed and a decision was made to place a Harding catheter. A 16 Chinese 10 cc Harding catheter was placed and connected to gravity drainage. The patient tolerated the procedures without complications and was transferred to the PACU in satisfactory condition. Tone Braga MD Sep 01, 2017 09:59
[2017-09-01] MEDS ORDERED: PNEUMOCOCCAL POLYVALENT INJ 25 MCG/0.5 ML SYR IM ONE (10:00)
[2017-09-01] MEDS ORDERED: DO NOT ADM ANY ANTICOAGULANT DRUGS PRN (10:05)
--- NOTE | 2017-09-01 11:39 | HHI.PR ---
Subjective Remarks Signs of infection improving. Bacteremia is present on blood cultures. Final culture results are needed prior to discharge. Objective Vital Signs Date Time Temp Pulse Resp B/P (MAP) Pulse Ox O2 Delivery O2 Flow Rate FiO2 09/01/17 10:35 95 09/01/17 10:30 97.7 74 15 119/70 (86) 98 Nasal Cannula 2 09/01/17 10:15 77 19 118/64 (82) 98 Nasal Cannula 2 09/01/17 10:03 98.4 87 16 116/65 (82) 94 Nasal Cannula 2 Manual Cuff/Auscultation 09/01/17 04:00 97.6 84 22 87/50 (62) 98 09/01/17 00:00 97.4 94 22 85/54 (64) 97 08/31/17 20:57 98 Nasal Cannula 2.00 08/31/17 20:00 97.1 91 22 96/52 (67) 96 08/31/17 16:00 97.9 83 18 105/61 (76) 97 08/31/17 12:00 96.6 81 17 104/67 (79) 99 I/O 08/31/17 08/31/17 08/31/17 09/01/17 09/01/17 09/01/17 07:00 15:00 23:00 07:00 15:00 23:00 Intake Total 2000 ml 1200 ml 1200 ml 1000 ml 600 ml Output Total 550 ml 750 ml 775 ml 175 ml Balance 1450 ml 1200 ml 450 ml 225 ml 425 ml Intake Oral 0 ml 0 ml IV Total 2000 ml 1200 ml 1200 ml 1000 ml 100 ml Other 500 ml Output Urine Total 550 ml 750 ml 775 ml 175 ml # Voids 2 2 # Bowel Movements 0 0 Result Diagram: 09/01/17 0503 09/01/17 0503 Objective Remarks GENERAL: NAD, A&Ox3 HEAD: Normocephalic. NECK: Supple, trachea midline. No lymphadenopathy. EYES: No scleral icterus. No injection or drainage. CARDIOVASCULAR: Regular rate and rhythm without murmurs, gallops, or rubs. RESPIRATORY: Breath sounds equal bilaterally. No accessory muscle use. GASTROINTESTINAL: Abdomen soft, non-tender, nondistended. MUSCULOSKELETAL: No cyanosis, or edema. SKIN: Warm and dry. NEURO: No focal neurological deficitis. A/P Problem List: (1) COPD (chronic obstructive pulmonary disease) ICD Code: J44.9 - Chronic obstructive pulmonary disease, unspecified Status: Chronic (2) Severe sepsis ICD Code: A41.9 - Sepsis, unspecified organism; R65.20 - Severe sepsis without septic shock Status: Acute (3) Ureteral calculi ICD Code: N20.1 - Calculus of ureter; R65.20 - Severe sepsis without septic shock Status: Acute (4) Pyelonephritis ICD Code: N12 - Tubulo-interstitial nephritis, not specified as acute or chronic; R65.20 - Severe sepsis without septic shock Status: Acute (5) Hydronephrosis ICD Code: N13.30 - Unspecified hydronephrosis Status: Acute Assessment and Plan Assessment and plan 67-year-old female admitted secondary to acute pyelonephritis with ureterolithiasis. Bacteremia present on cultures. Final results pending. Infectious disease consulted. Continue to monitor CBC. Severe sepsis Right ureterolithiasis with hydronephrosis Pyelonephritis Continue pain treatments as needed Continue Rocephin Urology following Stent placement planned Outpatient lithotripsy planned COPD Allergic Rhinitis Continue Breo Continued Ellepta Continue oxygen as needed No acute exacerbation when seen Continue Flonase DVT prophylaxis SCDs Thomas Hurtado MD Sep 01, 2017 11:39
[2017-09-01] MEDS ORDERED: DEXAMETHASONE SOD PHOS 4 MG/ML VIAL IV ONE (12:00)
[2017-09-01] MEDS ORDERED: ONDANSETRON HCL 4 MG/2 ML VIAL IV PUSH ONE (12:00)
[2017-09-01] MEDS ORDERED: LIDOCAINE HCL 1% PF 5 ML SYRINGE OTHER ONE (12:00)
[2017-09-01] MEDS ORDERED: MIDAZOLAM HCL 2 MG/2 ML VIAL IV ONE (12:00)
[2017-09-01] MEDS ORDERED: PHENYLEPH/NS 1000 MCG/10 ML SYR IV ONE (12:00)
[2017-09-01] MEDS ORDERED: PROPOFOL 200 MG/20 ML AMP IV ONE (12:00)
--- NOTE | 2017-09-01 13:52 | PD.ID.CON ---
History of Present Illness Service ID Consult Requested By Reason for Consult Evaluation and Mment of Gram negative bacteremia, Sepsis. Primary Care Physician Jay Hogue M.D. Diagnoses: History of Present Illness is a 67 y/o CF with PMHx of nephrolithiasis who presented to the emergency room with complaints of right flank pain, cloudy urine, nausea, vomiting, chills and fever of greater than 103F. Preliminary evaluation included a CT scan that demonstrated right hydronephrosis secondary to 3 obstructing right proximal ureteral stones measuring up to 5 mm in size. Patient also was noted to have a 2-3 mm left lower pole nonobstructing renal calculus. Patient was prescribed analgesic medication, started on antibiotic therapy and a urology consult placed for further management. At the time of consultation, the patient reports that her symptoms began acutely and prior to this she was doing well. Dr. Estevez is this patient's established urologist. Patient reports h/o COPD but denies active smoking but has significant passive smoking. ID consulted for evaluation and Mment of Sepsis, Gram negative bacteremia, Enterobacter cloacae UTI. Review of Systems Constitutional: COMPLAINS OF: Fever, DENIES: Diaphoretic episodes, Fatigue, Weight gain, Weight loss, Chills, Dizziness, Change in appetite, Night Sweats Endocrine: DENIES: Abnorml menstrual pattern, Heat/cold intolerance, Polydipsia , Polyuria, Polyphagia Eyes: DENIES: Blurred vision, Diplopia, Eye inflammation, Eye pain, Vision loss , Photosensitivity, Double Vision Ears, nose, mouth, throat: DENIES: Tinnitus, Hearing loss, Vertigo, Nasal discharge, Oral lesions, Throat pain, Hoarseness, Ear Pain, Running Nose, Epistaxis, Sinus Pain, Toothache, Odynophagia Respiratory: DENIES: Apneas, Cough, Snoring, Wheezing, Hemoptysis, Sputum production, Shortness of breath Cardiovascular: DENIES: Chest pain, Palpitations, Syncope, Dyspnea on Exertion , PND, Lower Extremity Edema, Orthopnea, Claudication Gastrointestinal: COMPLAINS OF: Abdominal pain, DENIES: Black stools, Bloody stools, Constipation, Diarrhea, Nausea, Vomiting, Difficulty Swallowing, Anorexia Genitourinary: DENIES: Abnormal vaginal bleeding, Dysmenorrhea, Dyspareunia, Sexual dysfunction, Urinary frequency, Urinary incontinence, Urgency, Hematuria , Dysuria, Nocturia, Vaginal discharge Musculoskeletal: DENIES: Joint pain, Muscle aches, Stiffness, Joint Swelling, Back pain, Neck pain Integumentary: DENIES: Abnormal pigmentation, Pruritus, Rash, Nail changes, Breast masses, Breast skin changes, Nipple discharge Hematologic/lymphatic: DENIES: Bruising, Lymphadenopathy Immunologic/allergic: DENIES: Eczema, Urticaria Neurologic: DENIES: Abnormal gait, Headache, Localized weakness, Paresthesias, Seizures, Speech Problems, Tremor, Poor Balance Psychiatric: DENIES: Anxiety, Confusion, Mood changes, Depression, Hallucinations, Agitation, Suicidal Ideation, Homicidal Ideation, Delusions Except as stated in HPI: all other systems reviewed are Neg Past Family Social History Allergies: Coded Allergies: No Known Allergies (Verified Allergy, Mild, 01/08/08) Past Medical History Nephrolithiasis COPD Past Surgical History Lithotripsy section Surgical removal of uterine fibroid tumor Reported Medications Reported Meds & Active Scripts Active Reported Flonase Sensimist (Fluticasone Furoate) 27.5 Mcg/Actuation [place]ley.susp EACH NARE Breo Ellipta Inh (Fluticasone/Vilanterol) 100-25 Mcg/Act Inh 1 Puff INH DAILY Use daily at the same time. Pravastatin 10 Mg Tab 10 Mg PO DAILY Ibuprofen 200 Mg Tab 200 Mg PO Q4H PRN [Drixoral Otc] 1 Tab PO DAILY Active Ordered Medications Current Medications Medications (Trade) Dose Ordered Sig/Stephon Route Start Time Stop Time Status Last Admin (NS Flush) 2 ml UNSCH PRN IV FLUSH 08/30/17 20:00 (NS Flush) 2 ml BID IV FLUSH 08/30/17 21:00 (Narcan Inj) 0.4 mg UNSCH PRN IV PUSH 08/30/17 20:00 Sodium Chloride 1,000 ml @ 125 mls/hr Q8H IV 08/30/17 21:00 09/01/17 17:35 (Morphine Inj) 2 mg Q3H PRN IV PUSH 08/30/17 20:00 (Flonase Logan Spr) 1 spray BID NASAL 08/30/17 23:45 (Breo Ellipta 100-25 Inh) 1 puff DAILY INH 08/31/17 09:00 09/01/17 08:09 (SoluCORTEF INJ) 100 mg Q6HR IV PUSH 08/31/17 06:00 09/01/17 17:32 (Pravachol) 10 mg HS PO 09/01/17 21:00 09/01/17 20:15 (Duoneb Neb) 1 ampule Q4HR NEB PRN NEB 08/31/17 21:30 08/31/17 22:35 (Tylenol) 650 mg Q4H PRN PO 08/31/17 21:30 09/01/17 20:15 Miscellaneous Information ALL NURSING DEPARTME... UNSCH PRN .XX 09/01/17 10:05 09/02/17 10:04 Ceftriaxone Sodium 2000 mg/ Sodium Chloride 100 ml @ 200 mls/hr Q24H IV 09/02/17 20:00 Family History Coronary artery disease Diabetes mellitus Social History Denies tobacco use Occasional alcohol use Physical Exam Vital Signs Vital Signs Date Time Temp Pulse Resp B/P (MAP) Pulse Ox O2 Delivery O2 Flow Rate FiO2 09/01/17 12:00 96.9 70 18 109/68 (82) 96 09/01/17 10:35 95 09/01/17 10:30 97.7 74 15 119/70 (86) 98 Nasal Cannula 2 09/01/17 10:15 77 19 118/64 (82) 98 Nasal Cannula 2 09/01/17 10:03 98.4 87 16 116/65 (82) 94 Nasal Cannula 2 Manual Cuff/Auscultation 09/01/17 08:00 97.4 68 20 94/51 (65) 97 09/01/17 04:00 97.6 84 22 87/50 (62) 98 09/01/17 00:00 97.4 94 22 85/54 (64) 97 08/31/17 20:57 98 Nasal Cannula 2.00 08/31/17 20:00 97.1 91 22 96/52 (67) 96 08/31/17 16:00 97.9 83 18 105/61 (76) 97 Physical Exam GENERAL: Obese, well-developed patient, in no apparent distress. SKIN: No rashes, ecchymoses or lesions. Cool and dry. HEAD: Atraumatic. Normocephalic. No temporal or scalp tenderness. EYES: Pupils equal round and reactive. Extraocular motions intact. No scleral icterus. No injection or drainage. ENT: Nose without bleeding, purulent drainage or septal hematoma. Throat without erythema, tonsillar hypertrophy or exudate. Uvula midline. Airway patent. NECK: Trachea midline. Supple, nontender, no meningeal signs. CARDIOVASCULAR: Regular rate and rhythm without murmurs, gallops, or rubs. RESPIRATORY: Clear to auscultation. Breath sounds equal bilaterally. GASTROINTESTINAL: Abdomen soft, non-tender, nondistended. MUSCULOSKELETAL: Extremities without clubbing, cyanosis, or edema. No joint tenderness, effusion, or edema noted. No calf tenderness. Negative Homans sign bilaterally. NEUROLOGICAL: Awake and alert. Non focal exam. Psych cooperative IV line sites with no e.o infection. Laboratory Laboratory Tests Test 09/01/17 05:03 White Blood Count 21.7 Red Blood Count 3.56 Hemoglobin 9.9 Hematocrit 29.5 Mean Corpuscular Volume 83.1 Mean Corpuscular Hemoglobin 27.7 Mean Corpuscular Hemoglobin Concent 33.4 Red Cell Distribution Width 14.7 Platelet Count 222 Mean Platelet Volume 7.6 Neutrophils (%) (Auto) 93.3 Lymphocytes (%) (Auto) 3.2 Monocytes (%) (Auto) 3.4 Eosinophils (%) (Auto) 0.0 Basophils (%) (Auto) 0.1 Neutrophils # (Auto) 20.2 Lymphocytes # (Auto) 0.7 Monocytes # (Auto) 0.7 Eosinophils # (Auto) 0.0 Basophils # (Auto) 0.0 CBC Comment DIFF FINAL Differential Comment Blood Urea Nitrogen 21 Creatinine 0.65 Random Glucose 123 Total Protein 5.8 Albumin 2.2 Calcium Level 7.4 Alkaline Phosphatase 72 Aspartate Amino Transf (AST/SGOT) 30 Alanine Aminotransferase (ALT/SGPT) 17 Total Bilirubin 0.2 Sodium Level 147 Potassium Level 3.3 Chloride Level 117 Carbon Dioxide Level 21.3 Anion Gap 9 Estimat Glomerular Filtration Rate 91 Protein Corrected Calcium 8.1 Date/Time Source Procedure Growth Status 08/30/17 17:20 Blood Peripheral Aerobic Blood Culture - Preliminary Enterobacter Species Resulted 08/30/17 17:20 Anaerobic Blood Culture - Preliminary Gram Negative Toni Resulted 08/30/17 17:20 Urine Catheterized Urine Urine Culture - Final Enterobacter Cloacae Complete Result Diagram: 09/01/17 0503 09/01/17 0503 Imaging Last Impressions Chest X-Ray 08/31/17 0000 Signed Impressions: Service Date/Time: August 05:54 - CONCLUSION: No acute disease. Negrito Bush MD Abdomen/Pelvis CT 08/30/17 1728 Signed Impressions: Service Date/Time: Wednesday, August 30, 2017 18:55 - CONCLUSION: 1. Patient's symptoms appear to be due to a series of 3 stones are in the right UPJ/proximal ureter ranging in size from 3-5 mm. Resulting right-sided hydronephrosis and perinephric stranding. 2. Nonobstructing 2-3 mm stone in the lower pole collecting system of the left kidney. 3. Cholelithiasis. 4. 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 Nicola Gomes MD Assessment and Plan Assessment and Plan Sepsis present on admission Gram negative bacteremia (E.cloacae) E.Cloacae Pyelonephritis COPD exacerbation Leucocytosis: sepsis, steroids, post op Recs DC Zosyn IV Ceftriaxone 2gm IV q24hr dose changed. Repeat blood cultures x 2 Follow cultures. Follow clinically. I will see patient next on Monday if any change in clinical condition or positive blood cultures please call . Eunice Head MD Sep 01, 2017 13:52
--- NOTE | 2017-09-01 17:43 | ECHRPT ---
Indication: shortness of breath CONCLUSIONS Normal left ventricular size. Wall thickness is normal. The left ventricular systolic function is low normal with an estimated ejection fraction in the rang e of 50- 55%. Mild thickening of the mitral valve leaflets. Moderate mitral valve regurgitation. Aortic valve sclerosis is present. Mild aortic valve regurgitation. Mild thickening of the aortic valve leaflets. There is trace tricuspid valve regurgitation. BP: 79 / 47 HR: 111 Rhythm: Technical Quality:Good FINDINGS LEFT VENTRICLE Normal left ventricular size. Wall thickness is normal. The left ventricular systolic function is low normal with an estimated ejection fraction in the rang e of 50- 55%. RIGHT VENTRICLE Normal right ventricular size and systolic function. LEFT ATRIUM The left atrial size is normal. RIGHT ATRIUM The right atrial size is normal. ATRIAL SEPTUM Normal atrial septal thickness without atrial level shunting by limited color doppler interrogation. AORTA The aortic root and proximal ascending aorta are normal in size on limited imaging. MITRAL VALVE Mild thickening of the mitral valve leaflets. Moderate mitral valve regurgitation. AORTIC VALVE Aortic valve sclerosis is present. Mild aortic valve regurgitation. Mild thickening of the aortic valve leaflets. TRICUSPID VALVE There is trace tricuspid valve regurgitation. PULMONARY VALVE The pulmonary valve is not well visualized. VESSELS The inferior vena cava is normal in size. PERICARDIUM No pericardial effusion. Carlo Desai MD (Electronically Signed) Final Date:01 September 2017 17:42
[2017-09-01] MEDS: PRAVASTATIN SOD 10 MG TAB PO SCH (20:15)
[2017-09-01] MEDS: ACETAMINOPHEN 325 MG TAB PO PRN (20:15)
[2017-09-01] MEDS: RESP: ALBUTEROL 2.5 MG/IPRATROPIUM 0.5 MG NEB (PRN) NEB (21:59)
[2017-09-02] VITALS (8 sets, daily range): BP systolic 109–123; BP diastolic 62–72; PULSE 85–109; RESP 16–24; TEMP 96.4–98.3; O2SAT 92–96
[2017-09-02] MEDS: SODIUM CHLOR 0.9% 1000 ML INJ 1,000 ML IV SCH ×2 (01:11→09:45)
[2017-09-02] MEDS: HYDROCORTISONE SOD SUCCINATE 100 MG VIAL IV PUSH SCH ×3 (01:11→11:54)
[2017-09-02] MEDS: ACETAMINOPHEN 325 MG TAB PO PRN ×2 (01:49→06:49)
[2017-09-02 06:54] LABS: BASOPHIL % 0.1 % (0.0-2.0); HEMATOCRIT 31.8 % (35.0-46.0); HEMO FLAGS DIFF FINAL; LYMPH % 3.1 % (9.0-44.0); LYMPHOCYTE # 0.7 TH/MM3 (1.0-4.8); MEAN CELL VOLUME 83.7 FL (80.0-100.0); MEAN CORPUSCULAR HEMOGLOBIN 27.3 PG (27.0-34.0); MEAN CORPUSCULAR HGB CONC 32.6 % (32.0-36.0); MONO % 3.1 % (0.0-8.0); NEUT % 93.7 % (16.0-70.0); PLATELET COUNT 248 TH/MM3 (150-450); RED CELL DISTRIBUTION WIDTH 15.2 % (11.6-17.2); WHITE BLOOD COUNT 22.4 TH/MM3 (4.0-11.0)
[2017-09-02 07:11] LABS: ANION GAP 9 MEQ/L (5-15); AST (GOT) 22 U/L (15-37); BICARBONATE 21.5 MEQ/L (21.0-32.0); BLOOD UREA NITROGEN 17 MG/DL (7-18); CHLORIDE 118 MEQ/L (98-107); GLOMERULAR FILTRATION RATE 91 ML/MIN (>89); POTASSIUM 3.5 MEQ/L (3.5-5.1); SODIUM (NA) 148 MEQ/L (136-145)
[2017-09-02 07:14] LABS: ALKALINE PHOSPHATASE 89 U/L (45-117); ALT (GPT) 23 U/L (10-53); TOTAL BILIRUBIN ADULT 0.1 MG/DL (0.2-1.0)
[2017-09-02] MEDS: SODIUM CHLORIDE 0.9% FLUSH 10 ML FLUSH IV FLUSH SCH ×2 (09:00→21:33)
[2017-09-02] MEDS: FLUTICASONE PROPIONATE 50 MCG/ACT 16 GM NASAL SPRAY NASAL SCH ×2 (09:00→21:00)
[2017-09-02] MEDS: FLUTICASONE 100 MCG/VILANTEROL 25 MCG INHALER INH SCH ×2 (09:11→21:32)
[2017-09-02] MEDS: RESP: ALBUTEROL 2.5 MG/IPRATROPIUM 0.5 MG NEB (PRN) NEB (11:45)
[2017-09-02] MEDS ORDERED: methylPREDNISolone SOD SUCC 40 MG/1 ML VIAL IV PUSH ONE (13:30)
[2017-09-02] MEDS ORDERED: FUROSEMIDE 20 MG/2 ML VIAL IV PUSH ONE (13:30)
--- NOTE | 2017-09-02 13:36 | HHI.PR ---
Subjective Remarks Enterobacter present on blood cultures and urine culture. Repeat blood culture is negative at 24 hours. Patient has problem with hypoxia today. Etiology may be COPD related versus new onset pneumonia versus pulmonary edema. Objective Vital Signs Date Time Temp Pulse Resp B/P (MAP) Pulse Ox O2 Delivery O2 Flow Rate FiO2 09/02/17 12:00 97.5 85 16 123/69 (87) 94 09/02/17 11:47 95 Nasal Cannula 1.00 09/02/17 08:00 97.7 89 16 113/63 (80) 93 09/02/17 07:49 18 09/02/17 04:00 98.3 88 22 109/62 (78) 95 09/02/17 00:00 97.7 87 24 120/69 (86) 95 09/01/17 22:02 94 Nasal Cannula 1.00 09/01/17 20:00 97.3 73 22 101/60 (74) 93 09/01/17 16:00 97.8 78 20 104/60 (75) 95 I/O 09/01/17 09/01/17 09/01/17 09/02/17 09/02/17 09/02/17 07:00 15:00 23:00 07:00 15:00 23:00 Intake Total 1000 ml 600 ml 620 ml 1947 ml Output Total 775 ml 175 ml 300 ml 1025 ml Balance 225 ml 425 ml 320 ml 922 ml Intake Oral 0 ml 620 ml 320 ml IV Total 1000 ml 100 ml 1627 ml Other 500 ml Output Urine Total 775 ml 175 ml 300 ml 1025 ml # Voids 2 2 # Bowel Movements 0 0 0 Result Diagram: 09/02/17 0557 09/02/17 0557 Objective Remarks GENERAL: NAD, A&Ox3 HEAD: Normocephalic. NECK: Supple, trachea midline. No lymphadenopathy. EYES: No scleral icterus. No injection or drainage. CARDIOVASCULAR: Regular rate and rhythm without murmurs, gallops, or rubs. RESPIRATORY: Breath sounds equal bilaterally. No accessory muscle use. GASTROINTESTINAL: Abdomen soft, non-tender, nondistended. MUSCULOSKELETAL: No cyanosis, or edema. SKIN: Warm and dry. NEURO: No focal neurological deficitis. A/P Problem List: (1) COPD (chronic obstructive pulmonary disease) ICD Code: J44.9 - Chronic obstructive pulmonary disease, unspecified Status: Chronic (2) Severe sepsis ICD Code: A41.9 - Sepsis, unspecified organism; R65.20 - Severe sepsis without septic shock Status: Acute (3) Ureteral calculi ICD Code: N20.1 - Calculus of ureter; R65.20 - Severe sepsis without septic shock Status: Acute (4) Pyelonephritis ICD Code: N12 - Tubulo-interstitial nephritis, not specified as acute or chronic; R65.20 - Severe sepsis without septic shock Status: Acute (5) Hydronephrosis ICD Code: N13.30 - Unspecified hydronephrosis Status: Acute Assessment and Plan Assessment and plan 67-year-old female admitted secondary to acute pyelonephritis with ureterolithiasis. Bacteremia present on cultures. Final results pending. Infectious disease consulted. Continue to monitor CBC. Shortness of breath today. Shortness of breath COPD exacerbation Hypoxia Etiology may be pneumonia versus pulmonary edema versus COPD exacerbation alone (reactive from systemic inflammation) Start IV Solu-Medrol Start scheduled DuoNeb's Oxygen as needed Chest x-ray Stop IV fluids Lasix 20 mg IV 1 time Severe sepsis Right ureterolithiasis with hydronephrosis Pyelonephritis Continue pain treatments as needed Continue Rocephin Urology following Stent placement planned Outpatient lithotripsy planned COPD Allergic Rhinitis Continue Breo Continued Ellepta Continue oxygen as needed No acute exacerbation when seen Continue Flonase DVT prophylaxis SCDs Thomas Hurtado MD Sep 02, 2017 13:36
--- NOTE | 2017-09-02 14:22 | RADRPT ---
EXAM DATE/TIME: 09/02/2017 13:42 [facility] COMPARISON: CT ABDOMEN & PELVIS W CONTRAST, August 30, 2017, 18:55. CHEST SINGLE AP, August 31, 2017, 5:54. INDICATIONS : Shortness of breath post kidney infection. MEDICAL HISTORY : Chronic obstructive pulmonary disease. SURGICAL HISTORY : None. ENCOUNTER: Initial ACUITY: 3 days PAIN SCORE: 0/10 LOCATION: Bilateral chest FINDINGS: Mild increased interstitial prominence with mild patchy bibasilar airspace disease. Cardiomediastinal contours are stable. Remainder of the exam is unchanged. CONCLUSION: 1. Mild lower lobe interstitial prominence and patchy airspace disease which may reflect atelectasis/ volume loss. Differential considerations include aspiration in the appropriate clinical setting. Jesus Harrison MD on September 02, 2017 at 14:18 Board Certified Radiologist. This report was verified electronically.
[2017-09-02] MEDS: RESP: ALBUTEROL 2.5 MG/IPRATROPIUM 0.5 MG NEB (SCH) NEB (15:24)
[2017-09-02] MEDS: LACTOBACILLUS ACIDOPHILUS TAB PO SCH (17:59)
--- NOTE | 2017-09-02 18:59 | HHI.PR ---
Addendum to Inpatient Note Addendum Reason: Additional Documentation Additional Information Cultures reviewed. Enterobacter in blood with intermediate S to Ceftriaxone. Continue Ceftriaxone IV for CAP/UTI/Sepsis. Start Levaquin will provide atypical coverage and possible drug for oral transition if BCX remain negative and clinically improving. Please call ID if any change in clinical condition or ready for Discharge for clearance. Eunice Head MD Sep 02, 2017 18:59
[2017-09-02] MEDS ORDERED: LEVOFLOXACIN 750 MG TAB PO SCH (20:00)
[2017-09-02] MEDS ORDERED: cefTRIAXone INJ 2,000 MG in SODIUM CHLORIDE 0.9% INJ 100 ML IV SCH (20:00)
[2017-09-02] MEDS ORDERED: SULFAMETHOXAZOLE-TRIMETHOPRIM DS 800-160 MG TAB PO SCH (21:00)
[2017-09-02] MEDS: PRAVASTATIN SOD 10 MG TAB PO SCH (21:24)
[2017-09-02] MEDS: methylPREDNISolone SOD SUCC 40 MG/1 ML VIAL IV PUSH SCH (21:25)
[2017-09-03] VITALS: BP 131/67; PULSE 83; RESP 18; TEMP 97.4; O2SAT 96
[2017-09-03] MEDS: ACETAMINOPHEN 325 MG TAB PO PRN (00:28)
[2017-09-03] MEDS: RESP: ALBUTEROL 2.5 MG/IPRATROPIUM 0.5 MG NEB (SCH) NEB ×2 (01:50→07:30)
[2017-09-03 07:32] VITALS: O2SAT 96
[2017-09-03 08:00] VITALS: BP 99/58; PULSE 85; RESP 16; TEMP 97.3; O2SAT 94
[2017-09-03] MEDS: FLUTICASONE 100 MCG/VILANTEROL 25 MCG INHALER INH SCH (08:10)
[2017-09-03] MEDS: methylPREDNISolone SOD SUCC 40 MG/1 ML VIAL IV PUSH SCH (08:11)
[2017-09-03] MEDS: FLUTICASONE PROPIONATE 50 MCG/ACT 16 GM NASAL SPRAY NASAL SCH (08:12)
[2017-09-03] MEDS: LACTOBACILLUS ACIDOPHILUS TAB PO SCH ×2 (08:12→13:00)
[2017-09-03] MEDS: SODIUM CHLORIDE 0.9% FLUSH 10 ML FLUSH IV FLUSH SCH (08:12)
[2017-09-03] MEDS ORDERED: FUROSEMIDE 40 MG/4 ML VIAL IV PUSH ONE (10:15)
[2017-09-03] MEDS ORDERED: POTASSIUM CHLORIDE 20 MEQ CONTROLLED RELEASE TAB PO ONE (10:15)
[2017-09-03] MEDS ORDERED: LACTTAB8 PO (11:38)
[2017-09-03] MEDS ORDERED: PRED5TAB PO (11:38)
[2017-09-03] MEDS ORDERED: LEVA750T9 PO (11:38)
--- NOTE | 2017-09-03 11:44 | HHI.DS ---
Discharge Summary Admission Date Aug 30, 2017 at 19:58 Discharge Date: Sep 03, 2017 Admitting Diagnosis severe sepsis, pyelonephritis, ureteral stones (1) Severe sepsis ICD Code: A41.9 - Sepsis, unspecified organism; R65.20 - Severe sepsis without septic shock Status: Acute (2) Pyelonephritis ICD Code: N12 - Tubulo-interstitial nephritis, not specified as acute or chronic; R65.20 - Severe sepsis without septic shock Status: Acute (3) Hydronephrosis ICD Code: N13.30 - Unspecified hydronephrosis Status: Acute (4) Ureteral calculi ICD Code: N20.1 - Calculus of ureter; R65.20 - Severe sepsis without septic shock Status: Acute (5) COPD (chronic obstructive pulmonary disease) ICD Code: J44.9 - Chronic obstructive pulmonary disease, unspecified Status: Chronic Procedures Cystoscopy with stent placement Brief History - From Admission Written by Jannet Day, acting as scribe for Dr. Starks on 08/30/17 at 22:38. Patient reports fever 103.3, cloudy urine, back pain, nausea and vomiting, and chills. Symptoms severe with onset 08/30 in the morning. Denies dysuria. The patient was concerned she might have a UTI and presented to the hospital. She is also complaining of a mild headache. She was not on antibiotics recently Urologist is Dr. Eason Over the past two weeks prior to this morning: denies any nausea, vomiting, diarrhea, chest pain, dizziness, shortness of breath, syncope, cough, black stools or red stools. CBC/BMP: 09/02/17 0557 09/02/17 0557 Significant Findings Laboratory Tests Test 09/01/17 05:03 09/02/17 05:57 White Blood Count 21.7 TH/MM3 (4.0-11.0) 22.4 TH/MM3 (4.0-11.0) Red Blood Count 3.56 MIL/MM3 (4.00-5.30) 3.80 MIL/MM3 (4.00-5.30) Hemoglobin 9.9 GM/DL (11.6-15.3) 10.4 GM/DL (11.6-15.3) Hematocrit 29.5 % (35.0-46.0) 31.8 % (35.0-46.0) Neutrophils (%) (Auto) 93.3 % (16.0-70.0) 93.7 % (16.0-70.0) Lymphocytes (%) (Auto) 3.2 % (9.0-44.0) 3.1 % (9.0-44.0) Neutrophils # (Auto) 20.2 TH/MM3 (1.8-7.7) 21.0 TH/MM3 (1.8-7.7) Lymphocytes # (Auto) 0.7 TH/MM3 (1.0-4.8) 0.7 TH/MM3 (1.0-4.8) Blood Urea Nitrogen 21 MG/DL (7-18) Random Glucose 123 MG/DL (74-106) 111 MG/DL (74-106) Total Protein 5.8 GM/DL (6.4-8.2) 6.0 GM/DL (6.4-8.2) Albumin 2.2 GM/DL (3.4-5.0) 2.3 GM/DL (3.4-5.0) Calcium Level 7.4 MG/DL (8.5-10.1) 8.1 MG/DL (8.5-10.1) Sodium Level 147 MEQ/L (136-145) 148 MEQ/L (136-145) Potassium Level 3.3 MEQ/L (3.5-5.1) Chloride Level 117 MEQ/L (98-107) 118 MEQ/L (98-107) Protein Corrected Calcium 8.1 MG/DL (8.5-10.1) Total Bilirubin 0.1 MG/DL (0.2-1.0) Hospital Course Mrs. Hogue is a 67-year-old female. She was admitted secondary to pyelonephritis and severe sepsis. With Rocephin she had improvement in her symptoms. Calculus was present in the ureter and stenting was provided by urology procedure. She's been doing well since. Enterococcus grew on her urinary tract infection cultures. She also had bacteremia with enterococcus. Repeat cultures of the blood are negative. She had some exacerbation of her COPD but this is calm down today. At this point she's stable and ready for transition to oral Levaquin as a treatment. She'll continue Levaquin treatment for a total of 2 weeks. She will also be on probiotics. Medically stable for discharge to home today. Outpatient follow-up with urology for lithotripsy and stent removal. Pt Condition on Discharge: Stable Discharge Disposition: Discharge Home Discharge Time: <= 30 minutes Discharge Instructions DIET: Follow Instructions for: As Tolerated, No Restrictions Activities you can perform: Regular-No Restrictions Follow up Referrals: PCP Follow-up - 2 Weeks Urology - 1 Week with Tone Braga MD New Medications: Lactobacillus Acidophilus (Lactobacillus Acidophilus) 1 Billion Cell Tab 1 TAB PO TIDAC for Nutritional Supplement, #45 TAB 0 Refills May use over the counter probiotics or yogurt as a substitute for this, if desired. Prednisone (Prednisone) 5 Mg Tab 5 MG PO DAILY for COPD, #5 TAB 0 Refills Levofloxacin (Levaquin) 750 Mg Tablet 750 MG PO Q24H for Infection, #13 TAB Continued Medications: Fluticasone Furoate (Flonase Sensimist) 27.5 Mcg/Actuation Revelo.susp EACH NARE, #1 Fluticasone-Vilanterol Inh (Breo Ellipta Inh) 100-25 Mcg/Act Inh 1 PUFF INH DAILY, #1 INHALER 0 Refills Use daily at the same time. Ibuprofen (Ibuprofen) 200 Mg Tab 200 MG PO Q4H PRN for FEVER, TAB 0 Refills Pravastatin (Pravastatin) 10 Mg Tab 10 MG PO DAILY for Cholesterol Management, #30 TAB 0 Refills [Drixoral Otc] () 1 TAB PO DAILY, 0 Refills Thomas Hurtado MD Sep 03, 2017 11:44
[2017-09-03 12:00] VITALS: BP 114/66; PULSE 82; RESP 16; TEMP 97.8; O2SAT 94
== END 2017-09-03 13:51 | disposition home or self-care (01) | DRG 872 ==
LOC: NEPC 16:38 → NEDA 19:58 → N07A 21:51
PROVIDERS: ADMIT Hospitalist; ATTEND Hospitalist
PROC: BT1D1ZZ Fluoroscopy of Right Kidney, Ureter and Bladder using Low Osmolar Contrast (ICD-10-PCS; 2017-09-01)
PROC: 0T9B70Z Drainage of Bladder with Drainage Device, Via Natural or Artificial Opening (ICD-10-PCS; 2017-09-01)
PROC: 0T768DZ Dilation of Right Ureter with Intraluminal Device, Via Natural or Artificial Opening Endoscopic (ICD-10-PCS; principal; 2017-09-01 09:12)
DX: A41.9 Sepsis, unspecified organism (principal); J44.1 Chronic obstructive pulmonary disease with (acute) exacerbation; N13.6 Pyonephrosis; Z87.442 Personal history of urinary calculi; R65.20 Severe sepsis without septic shock; K57.90 Diverticulosis of intestine, part unspecified, without perforation or abscess without bleeding; K80.20 Calculus of gallbladder without cholecystitis without obstruction; R51 Headache; Z82.49 Family history of ischemic heart disease and other diseases of the circulatory system; Z83.3 Family history of diabetes mellitus; R00.0 Tachycardia, unspecified; J30.9 Allergic rhinitis, unspecified; Z77.22 Contact with and (suspected) exposure to environmental tobacco smoke (acute) (chronic); Z23 Encounter for immunization
CPT/HCPCS: 71010; 74177; 80048; 80053; 81001; 83605; 83690; 85025; 87040; 87077; 87086; 87186; 87205; 90732; 93005; 93306; 94620; 94640; 94664; 96361; 96365; 96375; C1769; J0696; J1100; J1720; J1885; J1940; J2250; J2370; J2405; J2543; J2920; J3010; J3480; J7030; Q9967